=== PATIENT | female | born 1990 | race Caucasian/White ===

== ENCOUNTER → 2021-04-05 10:29 | Outpatient (CLI) | payer OTHER, SELFPAY ==
--- NOTE | ~2021-04-05 | US_ITS ---
EXAMINATION: US OB transvaginal EXAM DATE: 04/05/2021 11:03 INDICATION: Viability. 1st trimester. TECHNIQUE: Pelvic obstetrical transvaginal sonogram was performed by a technologist. There are [facility] grayscale and Doppler images available for interpretation. There are no earlier studies of this gestation for comparison. FINDINGS: Uterus measures 10.6 x 6.7 x 7.8 cm. There is intrauterine gestation sac. pole with heart rate confirmed at 175 beats per minute. The 2.1 cm crown-rump length corresponds to estimated gestational age by ultrasound of 8 weeks 5 days, estimated date of confinement 11/10/2021. Yolk sac i s identified. There is no sonographic evidence of subchorionic hemorrhage. The left ovary has the corpus luteal cyst. IMPRESSION: Live intrauterine gestation, age by ultrasound 8 weeks 5 days. Reviewed, dictated and finalized at location B.
== END ==
PROVIDERS: Visit Provider Nurse Practitioner
DX: Z36.9 Encounter for antenatal screening, unspecified (principal); Z3A.08 8 weeks gestation of pregnancy
CPT/HCPCS: 76817

== ENCOUNTER → 2021-06-11 13:50 | Outpatient (CLI) | payer OTHER, SELFPAY ==
--- NOTE | ~2021-06-11 | US_ITS ---
EXAMINATION: US OB /maternal detail EXAM DATE: 06/11/2021 14:24 INDICATION: Anatomy scan. 2nd trimester. TECHNIQUE: Pelvic obstetrical transabdominal sonogram was performed by a technologist. There are mu ltiple grayscale and Doppler images available for interpretation. There are no earlier studies of th is gestation for comparison. FINDINGS: There is a single fetus identified in vertex presentation with a heart rate of 147 beats pe r minute. The placenta is located in the anterior position. There is no sonographic evidence of retr oplacental hemorrhage identified. There is subjectively expected amount of amniotic fluid. Placental margin to internal cervical os distance is 6 cm. BIOMETRIC DATA: Biparietal diameter (BPD): 4.3 cm ----------------> 19 weeks 1 day. Head circumference (HC): 16.7 cm ----------------> 19 weeks 3 days. Abdominal circumference (AC): 14.6 cm ----------> 20 weeks 0 days. Femur length (FL): 2.8 cm --------------------------> 18 weeks 4 days. These measurements are concordant. HC/AC ratio is 1.14 (The 5th -- 95th percentile range is 1.09-1.26. Estimated weight is 284 g +/- 43 g. This is the 94th percentile when the currently reported cl inical gestation age 18 weeks 2 days, clinical estimated date of delivery (TRAMAINE-OPE) 11/10/2021 is used. estimated gestational age based on measurements from this exam is 19 weeks 2 days, with an est imated date of delivery (TRAMAINE-AUA) 11/03. ANATOMIC SURVEY: The following anatomy is identified and is sonographically normal in appearance: Cerebral ventricles Cavum septum pellucidum Cerebellum Cisterna magna Nuchal fold CTL-spine Four-chamber heart Cardiac outflow tracts Diaphragm Stomach Kidneys Bladder Three-vessel cord Cord insertion Extremities Nose/lips IMPRESSION: 1. Single fetus in vertex presentation with heart rate 147 beats per minute. 2. Estimated weight of 284 grams, 94th percentile using the currently reported clinical gestat ion age of 18 weeks 2 days, TRAMAINE(OPE) 11/10. 3. Normal anatomic survey. Reviewed, dictated and finalized at location A. L AIRCREWMAN MECHANICAL IMPRESSION: 1. Single fetus in vertex presentation with heart rate 147 beats per minute. 2. Estimated weight of 284 grams, 94th percentile using the currently re ported clinical gestation age of 18 weeks 2 days, TRAMAINE(OPE) 11/10. 3. Normal anatomic survey.
== END ==
PROVIDERS: Visit Provider Obstetrics & Gynecology
DX: Z36.9 Encounter for antenatal screening, unspecified (principal); Z3A.19 19 weeks gestation of pregnancy
CPT/HCPCS: 76805

== ENCOUNTER 2021-08-08 15:26 | Outpatient (CLI) | payer OTHER, SELFPAY ==
[2021-08-08 15:46] VITALS: BP 122/57; PULSE 75
[2021-08-08 16:01] VITALS: BP 116/53; PULSE 70
[2021-08-08 16:16] VITALS: BP 114/55; PULSE 66
[2021-08-08 16:30] VITALS: TEMP 37.3
[2021-08-08 16:31] VITALS: BP 112/55; PULSE 67
[2021-08-08 16:43] VITALS: BP 112/55; PULSE 69
== END 2021-08-08 16:56 | disposition home or self-care (01) ==
LOC: ANHOBOP 15:32 → ANHOBPP 15:33
PROVIDERS: Visit Provider Obstetrics & Gynecology Gynecology
DX: O41.8X90 Other specified disorders of amniotic fluid and membranes, unspecified trimester, not applicable or unspecified (principal); Z3A.00 Weeks of gestation of pregnancy not specified
CPT/HCPCS: 59025; 84112; 99199

== ENCOUNTER 2021-08-19 14:42 | Outpatient (RCR) | payer OTHER, SELFPAY ==
[2021-08-19 10:25] LABS: Glucose 1 Hour PP 50gm Dose 116 mg/dL
[2021-08-19 10:33] LABS: Hematocrit 33.2 % (37.0-47.0); Hemoglobin 11.1 g/dL (12.0-15.0)
[2021-08-19 10:43] LABS: Vitamin D 25 Hydroxy 61.8 ng/mL
[2021-08-19 11:12] LABS: HIV 1/2 Ab P24 Ag Result Negative (Negative)
[2021-08-19] MEDS: RHO(D) IMMUNE GLOBULIN 300 MCG/2 ML SYRINGE IM (14:59)
== END 2021-11-17 23:59 | disposition home or self-care (01) ==
LOC: ANHLAB 14:42
PROVIDERS: Visit Provider Obstetrics & Gynecology Gynecology
DX: Z11.4 Encounter for screening for human immunodeficiency virus [HIV] (principal); Z29.13 Encounter for prophylactic Rho(D) immune globulin; O36.0190 Maternal care for anti-D [Rh] antibodies, unspecified trimester, not applicable or unspecified; Z3A.00 Weeks of gestation of pregnancy not specified
CPT/HCPCS: 36415; 82306; 82947; 85014; 85018; 85461; 86703; 90384; 96372; G0432; J2790

== ENCOUNTER 2021-10-28 22:26 | Inpatient (IN) | payer OTHER, SELFPAY ==
[2021-10-28] VITALS (30 sets, daily range): BP systolic 95–148; BP diastolic 44–107; PULSE 74–259; O2SAT 95–100; BMI 29.6
[2021-10-28] MEDS: LACTATED RINGERS 1,000 ML 999 ML IV CONT ×2 (22:53→23:40)
[2021-10-28 23:01] LABS: Basophils Absolute Auto 0.1 K/mm3 (0.0-0.1); Basophils Percent Auto 0.5 % (0.2-1.2); Eosinophils Absolute Auto 0.2 K/mm3 (0-0.3); Hematocrit 33.9 % (37.0-47.0); Hemoglobin 11.3 g/dL (12.0-15.0); Immature Granulocyte Absolute 0.24 K/mm3 (0.00-0.031); Lymphocytes Absolute Auto 2.72 K/mm3 (0.9-3.2); Lymphocytes Percent Auto 22.9 % (18.3-44.2); Mean Corpuscular HGB Conc 33.3 g/dl (32-36); Mean Corpuscular Hemoglobin 29.3 pg (26-34); Mean Corpuscular Volume 87.8 fl (80-100); Mean Platelet Volume 11.9 fl (7.4-10.4); Monocytes Absolute Auto 1.1 K/mm3 (0.1-0.6); Monocytes Percent Auto 9.5 % (2.6-8.5); Neutrophils Absolute Auto 7.5 K/mm3 (1.3-6.7); Neutrophils Percent Auto 63.1 % (45.5-73.1); Platelet Count Result 189 k/mm3 (150-375); Red Blood Count 3.86 M/mm3 (4.2-5.4); Red Cell Distribution Width 14.1 % (11.5-14.5); White Blood Count 11.9 K/mm3 (4.5-10.0)
[2021-10-28 23:12] LABS: INR 0.9; Prothrombin Time 12.1 Seconds (11.1-14.7)
[2021-10-28 23:13] LABS: Partial Thromboplastin Time 25.4 SECONDS (22.3-36.8)
[2021-10-28 23:14] LABS: Fibrinogen 562 mg/dl (215-510)
--- NOTE | 2021-10-28 23:19 | WPDOBADMIT ---
Obstetrics - Admit Note Admission Note: record reviewed. No pertinent additions to the history and/or any subsequent changes in the physical findings that are not consistent with the expected course of the were found. Additions to the history and/or subsequent changes in the physical findings follow. Here with contractions. On arrival 4 cm and in severe pain. When RN checked and took out gloved hand full of clots. Abdomen tense and not resting between contractions so called in to evaluate patient. FHTs with variable decels. On arrival, same chucks with clotted blood. Cervix rechecked and 7-8/80/-2 AROM with clear fluid. Cleaned up and new pad placed. Abdomen soft between contractions. Suspect fast labor with possible abrutption. FHTs cat. I. Will try to get epidural and attempt vaginal delivery.
--- NOTE | 2021-10-28 23:38 | P.PNAN_ITS ---
Anes - Eval Pre Procedure Procedure: labor epidural Date/Time: 10/28/21 23:38 Surgeon: edward Pre Op Diagnosis: Labor Patient Data Age: 31 Gender: F Height: Weight: Last Vital Signs Pulse 90 10/28/21 23:36 BP 116/52 L 10/28/21 23:36 Pulse Ox 98 10/28/21 23:37 Allergies Allergy/AdvReac Type Severity Reaction Status Date / Time No Known Drug Allergies Allergy Unknown Unknown Verified 10/11/21 15:33 Home Medications Medication Instructions Recorded Confirmed Type ergocalciferol (vitamin D2) 1,250 mcg PO [id number] 10/11/21 10/11/21 History [Vitamin D2] prenat.vits,yobany,vad-nbna-ojjxc 1 tablet PO DAILY 10/11/21 10/11/21 History [ #2] Laboratory Tests 10/28/21 10/28/21 10/28/21 22:51 22:51 22:51 WBC 11.9 K/mm3 H K/mm3 (4.5-10.0) RBC 3.86 M/mm3 L M/mm3 (4.2-5.4) Hgb 11.3 g/dL L g/dL (12.0-15.0) Hct 33.9 % L % (37.0-47.0) MCV 87.8 fl fl (80-100) MCH 29.3 pg pg (26-34) MCHC 33.3 g/dl g/dl (32-36) RDW 14.1 % % (11.5-14.5) Plt Count 189 k/mm3 k/mm3 (150-375) MPV 11.9 fl H fl (7.4-10.4) Immature Gran % (Auto) 2.0 % H % (0-0.5) Neut % (Auto) 63.1 % % (45.5-73.1) Lymph % (Auto) 22.9 % % (18.3-44.2) [place] % (Auto) 9.5 % H % (2.6-8.5) Eos % (Auto) 2.0 % % (0-4.4) Baso % (Auto) 0.5 % % (0.2-1.2) Lymph # (Auto) 2.72 K/mm3 K/mm3 (0.9-3.2) [place] # (Auto) 1.1 K/mm3 H K/mm3 (0.1-0.6) Eos # (Auto) 0.2 K/mm3 K/mm3 (0-0.3) Baso # (Auto) 0.1 K/mm3 K/mm3 (0.0-0.1) Abs Immat Gran (auto) 0.24 K/mm3 H K/mm3 (0.00-0.031) Absolute Neuts (auto) 7.5 K/mm3 H K/mm3 (1.3-6.7) Absolute Nucleated RBC 0.0 K/mm3 K/mm3 (0.0-0.012) Nucleated RBC % 0.0 % % (0.0-0.2) PT 12.1 Seconds Seconds (11.1-14.7) INR 0.9 APTT 25.4 SECONDS SECONDS (22.3-36.8) Fibrinogen 562 mg/dl H mg/dl (215-510) RPR Pending Patient hx anesthesia problems: none Family hx anesthesia problems: none Results Review: All pre-operative results and documents have been reviewed as part of the pre-operative evaluation. [facility] Family History Family History (Updated 10/11/21 @ 15:37 by Cornell Kelly RN) Other No pertinent family history Social History Social History Substance use: never Spiritual care concerns: No Exam Day of Procedure 10/28/21 23:38
--- NOTE | 2021-10-28 23:49 | LDADM ---
This patient, Delicia Angela, was admitted to Labor/Delivery/Recovery 105 on 10/28/21 at 22:26. Plans for labor, pain management and were discussed with patient. Patient/family oriented to hospital policies and general routines including ID bracelet, bed and alarms, visiting hours, pain management, procedures, bathroom and other care routines, personal items, smoking policy, room service/diet and guest tray routines, security routines, and visiting hours. Patient/Family are encouraged to report perceived risks to care and to ask questions if they do not understand what they are told or what they should do. See OBIX for further documentation.
[2021-10-29] VITALS (27 sets, daily range): BP systolic 105–137; BP diastolic 49–103; PULSE 57–129; RESP 16; TEMP 36.1–37.7; O2SAT 78–100
[2021-10-29] MEDS: OXYTOCIN 30 UNITS/NS 500 ML 30 UNITS/500 ML BAG 999 UNITS IV CONT (00:35)
--- NOTE | 2021-10-29 00:51 | PM.OBPRVD ---
OB - Delivery Note Procedure Delivery date: 10/29/21 Procedure: Events: Other Intrapartal Events: Placental Abruption Induction method: None Delivery augmentation: Rupture of Membranes Delivery monitor: External FHT and External Uterine Route of delivery: Episiotomy description: None Laceration Description: Superficial (periurethral, hemostatic- no repair required. ) Specimen: Yes Quantitative Blood Loss (ml): 250 Anesthesia type: Epidural Disposition: Floor [place] Baby Date of : 10/29/21 Time of : 00:33 Weeks of gestation at delivery: 38 Infant gender: Male Weight (pounds): 8 Weight (ounces): 13 presentation: vertex position: Left Occiput Anterior (with compound presentation of right arm) Placenta delivery description: Spontaneous Cord Vessel Description: 3 Vessels score one minute: 7 score five minutes: 9
--- NOTE | 2021-10-29 00:55 | PM.DS ---
DS: Admitting Diagnosis Discharge Date 10/30/2021 <Ama Garcia CNM - Last Filed: 11/05/21 17:25> Admitting Diagnosis IUP at 38 weeks. Vaginal bleeding. Labor <Ama Garcia CNM - Last Filed: 11/05/21 17:25> DS: Discharge Diagnosis Discharge Diagnosis (1) 38 weeks gestation of : Code(s): Z3A.38 - 38 weeks gestation of <Ama Garcia CNM - Last Filed: 11/05/21 17:25> Status: Acute <Ama Garcia CNM - Last Filed: 11/05/21 17:25> (2) (normal spontaneous vaginal delivery): Code(s): O80 - Encounter for full-term uncomplicated delivery <Ama Garcia CNM - Last Filed: 11/05/21 17:25> Status: Acute <Ama Garcia CNM - Last Filed: 11/05/21 17:25> (3) Placental abruption in third trimester: Code(s): O45.93 - Premature separation of placenta, unspecified, third trimester <Ama Garcia CNM - Last Filed: 11/05/21 17:25> Status: Acute <Ama Garcia CNM - Last Filed: 11/05/21 17:25> DS: Summary Hospital Course Hospital Course: tolerating diet, voiding, and ambulating <Juana Romeo MD - Last Filed: 10/30/21 07:22> Time Spent with Patient Time attestation: Total time spent providing and/or coordinating discharge services: <Ama Garcia CNM - Last Filed: 11/05/21 17:25> Exam Const: Orientation/consciousness: patient oriented x3 <Ama Garcia CNM - Last Filed: 11/05/21 17:25> Limitations: no limitations <Ama Garcia CNM - Last Filed: 11/05/21 17:25> Resp: Effort & Inspection: normal respiratory effort and able to speak in complete sentences <Ama Garcia CNM - Last Filed: 11/05/21 17:25> Auscultation: clear to auscultation bilaterally <Ama B. RadhaEMIGDIO aldrichAida - Last Filed: 11/05/21 17:25> Cardio: Rate: regular rate <Ama B. RadhaEMIGDIO aldrichAida - Last Filed: 11/05/21 17:25> Peripheral pulses: Peripheral pulses 2+ throughout <Ama Chavez RadhaEIMGDIO aldrichAida - Last Filed: 11/05/21 17:25> GI: Inspection: normal to inspection <Ama Chavez RadhaEMIGDIO aldrichAida - Last Filed: 11/05/21 17:25> Auscultation: normal bowel sounds <EMIGDIO KingAida - Last Filed: 11/05/21 17:25> : General: Yes bladder normal to palpation <EMIGDIO KingAida - Last Filed: 11/05/21 17:25> Bimanual exam- vagina & uterus: bladder normal to palpation <EMIGDIO KingAida - Last Filed: 11/05/21 17:25> Other: Fundus firm <AmaEMIGDIO ArreolaAida - Last Filed: 11/05/21 17:25> Neuro: General: patient oriented x3 <EMIGDIO KingAida - Last Filed: 11/05/21 17:25> Cognition (Neuro): normal cognition <EMIGDIO KingAida - Last Filed: 11/05/21 17:25> Speech: normal speech <Ama Garcia CNM - Last Filed: 11/05/21 17:25> Extrem: General: normal to inspection <EMIGDIO KingAida - Last Filed: 11/05/21 17:25> Psych: Appearance: grossly normal <Ama Garcia CNM - Last Filed: 11/05/21 17:25> Mental Status: mental status grossly normal <Ama Garcia CNM - Last Filed: 11/05/21 17:25> Speech and movement: Normal speech and movement present <Ama Garcia CNM - Last Filed: 11/05/21 17:25> Affect: normal affect <Ama Garcia CNM - Last Filed: 11/05/21 17:25> Attitude: cooperative <Ama Garcia CNM - Last Filed: 11/05/21 17:25> Thought process: Normal thought process present <Ama Garcia CNM - Last Filed: 11/05/21 17:25> DS: Data Data Completed and Pending Labs on day of discharge: Labs from last 24 hours 10/28/21 10/28/21 10/28/21 22:51 22:51 22:51 WBC RBC Hgb Hct MCV MCH MCHC RDW Plt Count MPV Immature Gran % (Auto) Neut % (Auto) Lymph % (Auto) [place] % (Auto) Eos % (Auto) Baso % (Auto) Lymph # (Auto) [place] # (Auto) Eos # (Auto) Baso # (Auto) Abs Immat Gran (auto) Absolute Neuts (auto) Absolute Nucleated RBC Nucleated RBC % PT 12.1 INR 0.9 AP
--- NOTE | 2021-10-29 08:35 | PM.OBPNVD ---
OB - PN: Subj Subjective Date/time seen: 10/29/21 08:35 Patient comments: pain well controlled [place] baby status: doing well and nursing well OB - PN: Obj Data Labs CBC & Chem 7: 10/28/21 22:51 Labs: Laboratory Results - last 24 hr 10/28/21 10/28/21 10/28/21 22:51 22:51 22:51 WBC 11.9 H RBC 3.86 L Hgb 11.3 L Hct 33.9 L MCV 87.8 MCH 29.3 MCHC 33.3 RDW 14.1 Plt Count 189 MPV 11.9 H Immature Gran % (Auto) 2.0 H Neut % (Auto) 63.1 Lymph % (Auto) 22.9 [place] % (Auto) 9.5 H Eos % (Auto) 2.0 Baso % (Auto) 0.5 Lymph # (Auto) 2.72 [place] # (Auto) 1.1 H Eos # (Auto) 0.2 Baso # (Auto) 0.1 Abs Immat Gran (auto) 0.24 H Absolute Neuts (auto) 7.5 H Absolute Nucleated RBC 0.0 Nucleated RBC % 0.0 PT 12.1 INR 0.9 APTT 25.4 Fibrinogen 562 H Blood Type A Negative Antibody Screen Negative OB - PN A/P Time Spent With Patient Time: Total time spent is greater than 50% in coordination of care (as documented) at patient's floor/unit and/or counseling patient: Review of Systems Review of Systems: All systems reviewed & are unremarkable except as noted in HPI and below Constitutional: Constitutional: Reports no additional constitutional complaints Genitourinary: Comments: Urinating without difficulty. Exam Narrative: Alert and oriented. Mood is pleasant and cooperative. Urinating without difficulty. Denies passing any large clots. Perineum with minimal edema. Const: Limitations: no limitations Resp: Effort & Inspection: normal respiratory effort Auscultation: clear to auscultation bilaterally Cardio: Rate: regular rate GI: Inspection: normal to inspection : Other: Fundus firm and 2 below U Extrem: General: normal to inspection and full ROM Psych: Appearance: grossly normal Mental Status: mental status grossly normal Speech and movement: Normal speech and movement present Affect: normal affect
[2021-10-29] MEDS: IBUPROFEN 600 MG TABLET PO ×3 (08:56→21:54)
[2021-10-29] MEDS: MULTIVIT/MIN/PREN/FOL AC/IRON TABLET 1 TAB PO (08:57)
[2021-10-29] MEDS: DOCUSATE SODIUM 100 MG CAPSULE PO (08:57)
[2021-10-29] MEDS: BENZOCAINE 20% AER SPR (*SP) 56 GM CAN 1 SPRAY TOPICAL (08:57)
[2021-10-29 13:51] LABS: Rapid Plasma Reagin Non-Reactive (NonReactive)
[2021-10-30 02:24] LABS: Hematocrit 30.7 % (37.0-47.0); Hemoglobin 9.9 g/dL (12.0-15.0)
--- NOTE | 2021-10-30 07:00 | PC.NURSE ---
PT introductions made and plan of care discussed per post , pain management, breast feeding, daily care activities and pending discharge to home. PT received such instructions this shift per one to one discussion, mom baby care guide and demonstrations. PT and spouse both recipients of such instructions and no barriers to learning identified at this time. Pt verbalized understanding of such care.
--- NOTE | 2021-10-30 07:17 | PM.OBPNVD ---
OB - PN: Subj Subjective Date/time seen: 10/30/21 07:17no complaints Patient comments: no complaints and pain well controlled [place] feeding status: exclusively breast feeding OB - PN: Obj Data Labs CBC & Chem 7: 10/30/21 02:19 Labs: Laboratory Results - last 24 hr 10/28/21 10/30/21 10/30/21 22:51 02:19 02:19 Hgb 9.9 L Hct 30.7 L RPR Non-reactive Blood Type A Negative Antibody Screen Negative Screen Negative Baby's Blood Type O pos Baby's PINO Negative Doses of RhIg Required 1 OB - PN A/P Plan day: 2 Plan: routine care, discharge home, follow up 6 weeks and other (plans vasectomy) Time Spent With Patient Time: Total time spent is greater than 50% in coordination of care (as documented) at patient's floor/unit and/or counseling patient: Exam : Bimanual exam- vagina & uterus: other (Uterus firm, nt @U)
[2021-10-30 07:40] VITALS: BP 119/68; PULSE 67; RESP 16; TEMP 36.8; O2SAT 99
--- NOTE | 2021-10-30 07:42 | PC.NURSE ---
Addendum entered by Nelly Angel RN 10/30/21 15:04: Mother does not have large nipples and father of baby is involved with encouragement. Addendum entered by Nelly Angel RN 10/30/21 07:46: Consult was on 10/29/2021 [id number] Original Note: late entry [id number] Introductions were made, then consulted with patient to assess needs related to . Mother led the conversation with her experience feeding her infant so far. Mother works well with her infant with large nipples to assist to latch as deeply as possible. Encouraged understanding of the benefits of skin to skin (unwrapping and placing vertically on her chest), responsive feeding and how to watch for early feeding signs, frequency of feeding on demand about every 8-12 times in 24 hours (every 2-3 hours), milk production, duration of feeding, signs of adequate intake/output and how to record on the feeding sheet. Reviewed positioning and ear, shoulder, hip alignment, supporting the breast, asymmetrical latch (off-center), and leading with the chin with a big open side gape. Infant latched optimally to the right breast in cross cradle position. Education given to mother of how to visualize suck/swallow ratios and drinking at the breast. Infant was able to maintain latch without discomfort to mother. Nipple care reviewed with optimal latch and good positioning. Reminding mother of comfort measures of healing with a warm and wet washcloth to rinse breast, then leave open to air-dry as needed. Reviewed good handwashing when or touching the breast/nipples to prevent infection. Resources used to facilitate learning were used with the visual handouts/mom and baby guide. Mother voiced understanding of responsive feedings, stimulating with skin to skin, hand expressed colostrum, touch, talking to to encourage if it has been 2 -3 hours since the start of the last , to call if does not latch or there is discomfort with . Father of baby is actively involved assisting with reassurance, education, and information. Reported to the primary RN.
--- NOTE | 2021-10-30 08:01 | WPDANLDPN2 ---
Anes-Prog Note L&D Date/Time: 10/30/21 08:01 Comfortable throughout: labor and delivery Neuraxial method: epidural Epidural/Spinal procedure site: clean & non-tender Neuro status: Neuro function grossly intact. Cardiovascular status: normal Respiratory status: normal Airway patency: baseline Mental status: baseline Post-Op hydration status: normal Vital Signs: Last Vital Signs Temp 96.9 F L 10/29/21 19:30 Pulse 65 10/29/21 19:30 Resp 16 10/29/21 19:30 BP 127/71 10/29/21 19:30 Pulse Ox 99 10/29/21 15:45 O2 Del Method Room Air 10/29/21 13:00 Pain score (VAS): 0/10 I/O: Intake & Output 10/29/21 10/30/21 10/30/21 23:59 07:59 15:59 Intake Total 500 Balance 500 Patient feedback: Patient satisfied with anesthetic care.
[2021-10-30 10:45] VITALS: PULSE 67; RESP 16; O2SAT 99
[2021-10-30] MEDS: POLYSACCHARIDE IRON COMPLEX 150 MG CAPSULE PO (10:51)
[2021-10-30] MEDS: DOCUSATE SODIUM 100 MG CAPSULE PO (10:51)
[2021-10-30] MEDS: ACETAMINOPHEN 325 MG TABLET 650 MG PO (10:52)
[2021-10-30] MEDS: MULTIVIT/MIN/PREN/FOL AC/IRON TABLET 1 TAB PO (10:52)
[2021-10-30] MEDS: IBUPROFEN 600 MG TABLET PO (10:53)
[2021-10-30] MEDS: WITCH HAZEL 40 PADS 1 PAD TOPICAL (10:54)
[2021-10-30] MEDS: BENZOCAINE 20% AER SPR (*SP) 56 GM CAN 1 SPRAY TOPICAL (10:54)
--- NOTE | 2021-10-30 11:30 | PC.NURSE ---
PT received discharge instructions per protocol and verbalized understanding of such care.
[2021-10-30] MEDS: RHO(D) IMMUNE GLOBULIN 300 MCG/2 ML SYRINGE IM (12:08)
--- NOTE | 2021-10-30 14:25 | PC.NURSE ---
PT discharged to home ambulatory accompanied by spouse and and taken to waiting car. follow up appts confirmed
[2021-11-01 10:58] VITALS: BP 113/72; PULSE 75; RESP 16; TEMP 37; O2SAT 99
== END 2021-10-30 14:25 | disposition home or self-care (01) | DRG 807 ==
LOC: ANHLDR 10-29 00:59 → ANHOB2 10-29 02:54
PROVIDERS: Advanced Practice Midwife; Admitting Provider Obstetrics & Gynecology Gynecology; Visit Provider Obstetrics & Gynecology Gynecology
DX: O45.93 Premature separation of placenta, unspecified, third trimester (principal); Z37.0 Single live birth; O71.82 Other specified trauma to perineum and vulva; O32.6XX0 Maternal care for compound presentation, not applicable or unspecified; O62.3 Precipitate labor; O76 Abnormality in fetal heart rate and rhythm complicating labor and delivery; Z3A.38 38 weeks gestation of pregnancy
CPT/HCPCS: 36415; 85014; 85018; 85025; 85384; 85461; 85610; 85730; 86592; 86850; 86900; 86901; 88307; 90384; A9270; J0131; J2274; J2590; J2790; J2795; J7120

== ENCOUNTER 2021-10-31 09:46 | Outpatient (CLI) | payer OTHER, SELFPAY ==
--- NOTE | 2021-10-31 09:58 | PC.NURSE ---
Pt arrived and is very tearful complaining that breasts are extremely painful and baby can't latch. When pumping for over 20 minutes only 2 drops of milk expressed, same with hand expression. Examined mom. Breasts are moderately firm, Nipples are slightly reddened with small suck blister on rt nipple. Baby latched onto rt side in football hold and suckles vigorously. Discussed with mom feeding early with cues vs waiting till crying, deep latch, suckling pattern, and milk coming in/letting down. Mom and dad verbalize understanding and are thankful for assistance. Baby nursed on rt side for 5 min with long draws and swallowing noted. PUmped for 10 minutes-5cc expressed. Latched onto lt breast and suckled with long draws and swallows for 3 min then dropped head back and fell asleep. Instructed mom on feeding q3h, pumping to comfort, supplementing. Questions asked/answered to Pt and significant other. Follow up appt is tomorrow here with RN. Encouraged to call Bia Angel RN or bita for concerns. Mom and dad agree with plan.
== END 2021-10-31 09:47 | disposition home or self-care (01) ==
LOC: ANHOBOP 09:47
PROVIDERS: Visit Provider Pediatrics
DX: N64.59 Other signs and symptoms in breast (principal)
CPT/HCPCS: 99211; G0463